=== PATIENT | female | born 1960 | race African-American/Black ===

== ENCOUNTER → 2016-08-09 | Outpatient (CLI) | payer BC | LOC: RAD 10:20 | PROVIDERS: ATTEND Nurse Practitioner Psychiatric/Mental Health | DX: R10.9 Unspecified abdominal pain (principal); K76.0 Fatty (change of) liver, not elsewhere classified | CPT/HCPCS: 76700; 93976 ==

== ENCOUNTER 2017-10-05 09:33 | Emergency (ER) | payer SELFPAY ==
[2017-10-05] MEDS ORDERED: GUAIFENESIN/CODEINE PHOS 100-10 MG/ 5 ML UDC PO ONE (10:50)
[2017-10-05] MEDS ORDERED: PREDNISONE 20 MG TABLET PO ONE (10:50)
[2017-10-05] MEDS ORDERED: IPRATROPIUM/ALBUTEROL 0.5-2.5 MG/3 ML AMPUL NEB ONE (10:50)
--- NOTE | 2017-10-05 10:55 | ER Document Report ---
ED General - General Chief Complaint: Cough Stated Complaint: COLD LIKE SYMPTOMS Time Seen by Provider: 10/05/17 10:45 Mode of Arrival: Ambulatory Information source: Patient, [facility] Records Notes: 57-year-old female with a history of hypertension, diabetes present with complaint of cough, nasal congestion, ear pain and sore throat that started 3 days prior to arrival. Patient describes the cough as persistent, productive and keeping her from being able to sleep. Her right ear started aching this morning. And her throat started hurting last night. She has tried taking over- the-counter allergy and sinus medication without relief. She denies any fever, chills, shortness of breath, back pain. She states she does have some chest pain with coughing only. She denies sick contacts, tobacco use. TRAVEL OUTSIDE OF THE [place] IN LAST 30 DAYS: No - HPI Onset: Last week Onset/Duration: Gradual, Worse Quality of pain: Achy Associated symptoms: Body/muscle aches, Chest pain - With coughing only, Productive cough, Earache, Sinus pain/drainage, Sore throat Exacerbated by: Denies Relieved by: Denies Similar symptoms previously: No Recently seen / treated by doctor: No - Related Data Allergies/Adverse Reactions: No Known Allergies Allergy (Verified 10/05/17 09:34) Past Medical History - Social History Smoking Status: Never Smoker Chew tobacco use (# tins/day): No Frequency of alcohol use: Rare Drug Abuse: None Family History: Reviewed & Not Pertinent Patient has suicidal ideation: No Patient has homicidal ideation: No - Past Medical History Cardiac Medical History: Reports: Hx Hypertension Denies: Hx Coronary Artery Disease, Hx Heart Attack Pulmonary Medical History: Denies: Hx Asthma, Hx Bronchitis, Hx COPD, Hx Pneumonia Neurological Medical History: Denies: Hx Cerebrovascular Accident, Hx Seizures Endocrine Medical History: Reports: Hx Diabetes Mellitus Type 2 Renal/ Medical History: Denies: Hx Peritoneal Dialysis Musculoskeltal Medical History: Denies Hx Arthritis Past Surgical History: Reports: Hx Hysterectomy - Immunizations Hx Diphtheria, Pertussis, Tetanus Vaccination: Yes Review of Systems - Review of Systems Notes: REVIEW OF SYSTEMS: CONSTITUTIONAL : Denies fever, or sweats. Denies recent illness. Denies weight loss, recent hospitalizations. He admits to chills EENT: Denies visula changes, eye pain. She admits to sinus pressure and nasal congestion. Denies sore throat, oral lesions, difficulty swallowing. CARDIOVASCULAR: Denies chest pain. Denies palpitations or racing or irregular heart beat. Denies lower extremity edema. RESPIRATORY: Admits to productive cough, chest congestion denies shortness of breath, GASTROINTESTINAL: Denies abdominal pain or distention. Denies nausea, vomiting , or diarrhea. Denies blood in vomitus, stools, or per rectum. Denies black, tarry stools. Denies constipation. GENITOURINARY: Denies difficulty urinating, painful urination, burning, frequency, blood in urine, or vaginal discharge. MUSCULOSKELETAL: Denies back or neck pain or stiffness. Denies joint pain or swelling. SKIN: Denies rash, lesions or sores. HEMATOLOGIC : Denies easy bruising or bleeding. LYMPHATIC: Denies swollen, enlarged glands. NEUROLOGICAL: Denies confusion or altered mental status. Denies passing out or loss of consciousness. Denies dizziness or lightheadedness. Denies headache. Denies weakness or paralysis or loss of use of either side. Denies problems with gait or speech. Denies sensory loss, numbness, or tingling. Denies seizures. PSYCHIATRIC: Denies anxiety or stress. Denies depression, suicidal ideation, or homicidal ideation. Physical Exam - Vital signs Vitals: Temp Pulse Resp BP Pulse Ox 99 F 65 18 146/65 H 98 10/05/17 10:01 10/05/17 10:01 10/05/17 10:01 10/05/17 10:01 10/05/17 10:01 Interpretation: Normal, Hypertensive - Notes Notes: PHYSICAL EXAMINATION: GENERAL: Well-appearing, well-nourished and in no acute distress. HEAD: Atraumatic, normocephalic. EYES: Pupils equal round and reactive to light, extraocular movements intact, conjunctiva are normal. ENT: Nares patent, oropharynx erythematous with exudates. Moist mucous membranes. NECK: Normal range of motion, supple without lymphadenopathy. LUNGS: Rhonchi in the left lower lung field, no respiratory distress, no accessory muscle use. HEART: Regular rate and rhythm without murmurs ABDOMEN: Soft, nontender, nondistended abdomen. No guarding, no rebound. No masses appreciated. Female : deferred Musculoskeletal: Normal range of motion, no pitting or edema. No cyanosis. NEUROLOGICAL: Cranial nerves grossly intact. Normal speech, normal gait. Normal sensory, motor exams PSYCH: Normal mood, normal affect. SKIN: Warm, Dry, normal turgor, no rashes or lesions noted. Course - Re-evaluation Re-evalutation: Chest X-Ray 10/05/17 10:50 IMPRESSION: NO ACUTE RADIOGRAPHIC FINDING IN THE CHEST. 10/05/17 11:54 On reevaluation patient states she is feeling better. Cough has improved. X- ray reviewed. 10/05/17 15:34 10/05/17 15:34 57-year-old female with a history of hypertension, diabetes present with complaint of cough, nasal congestion, ear pain and sore throat that started 3 days prior to arrival. Patient describes the cough as persistent, productive and keeping her from being able to sleep. Her right ear started aching this morning. And her throat started hurting last night. She has tried taking over- the-counter allergy and sinus medication without relief. She denies any fever, chills, shortness of breath, back pain. She states she does have some chest pain with coughing only. On arrival vitals were reviewed. Patient is afebrile , not hypoxic. She does not appear toxic or dehydrated. She is in no respiratory distress. Exam is significant for rhonchi in the left lower lung field, a persisting cough and mild erythema of the throat. Patient was provided breathing treatments, prednisone and Robitussin. On reevaluation she states that she is feeling better. She was discharged home in stable condition. Patient provided the opportunity to ask questions, and express concerns. Discharge instructions discussed. Patient is agreeable with discharge home. Return indications explained and discussed with the patient who displays understanding. Patient encouraged to return to the emergency department immediately with any concerns. 10/05/17 15:34 - Vital Signs Vital signs: Temp Pulse Resp BP Pulse Ox 98.9 F 67 15 138/84 H 100 10/05/17 12:07 10/05/17 12:07 10/05/17 12:07 10/05/17 12:07 10/05/17 12:07 - Diagnostic Test Radiology reviewed: Image reviewed, Reports reviewed Discharge - Discharge Clinical Impression: Cough, Wheezing URI (upper respiratory infection) Qualifiers: URI type: unspecified URI Qualified Code(s): J06.9 - Acute upper respiratory infection, unspecified Pharyngitis Qualifiers: Pharyngitis/tonsillitis etiology: unspecified etiology Qualified Code(s): J02.9 - Acute pharyngitis, unspecified Condition: Good Disposition: HOME, SELF-CARE Instructions: Upper Respiratory Illness ([facility]), Viral Syndrome ([facility]) Additional Instructions: Follow up with your physician tomorrow for further care or return to the ED IMMEDIATELY if symptoms worsen or new concerns occur. If you cannot afford to follow up with your primary care physician a list of low cost clinics have been provided at the end of your discharge papers as well. Prescriptions: Guaifenesin/Codeine Phos [Robitussin-AC Syrup 59 ml] 10 ml PO QHS #50 ml Doxycycline Hyclate 100 mg PO BID #14 capsule Prednisone 60 mg PO DAILY #15 tablet Forms: Elevated Blood Pressure, Return to Work
[2017-10-05 12:08] VITALS: BP 138/84
--- NOTE | 2017-10-05 12:11 | RADIOLOGY REPORT (SQ) ---
EXAM DESCRIPTION: CHEST 2 VIEWS COMPLETED DATE/TIME: 10/05/2017 11:29 am REASON FOR STUDY: cough fever COMPARISON: Two-view chest 06/17/2013 EXAM PARAMETERS: NUMBER OF VIEWS: two views TECHNIQUE: Digital Frontal and Lateral radiographic views of the chest acquired. RADIATION DOSE: NA LIMITATIONS: none FINDINGS: LUNGS AND PLEURA: No opacities, masses or pneumothorax. No pleural effusion. MEDIASTINUM AND HILAR STRUCTURES: No masses or contour abnormalities. HEART AND VASCULAR STRUCTURES: Heart normal size. No evidence for failure. BONES: No acute findings. HARDWARE: None in the chest. OTHER: No other significant finding. IMPRESSION: NO ACUTE RADIOGRAPHIC FINDING IN THE CHEST. TECHNICAL DOCUMENTATION: JOB ID: [id number] [employer]- All Rights Reserved Reading location - IP/workstation name: [email or web address]
== END 2017-10-05 12:08 | disposition home or self-care (01) ==
LOC: ER 09:33
DX: J06.9 Acute upper respiratory infection, unspecified (principal); R05 Cough; R06.2 Wheezing; R09.81 Nasal congestion; J02.9 Acute pharyngitis, unspecified; H92.01 Otalgia, right ear; E11.9 Type 2 diabetes mellitus without complications; I10 Essential (primary) hypertension; M79.1 Myalgia; R07.89 Other chest pain; J34.89 Other specified disorders of nose and nasal sinuses
CPT/HCPCS: 94640; 99283; 71046; J7512; J7620

== ENCOUNTER → 2017-10-31 | Outpatient (CLI) | payer SELFPAY ==
[2017-10-31 14:00] LABS: ANION GAP 9 (5-19); BLOOD UREA NITROGEN 17 mg/dL (7-20); CALCIUM 10.1 mg/dL (8.4-10.2); CARBON DIOXIDE 30 mmol/L (22-30); CHLORIDE 107 mmol/L (98-107); CHOLESTEROL 166.15 mg/dL (0-200); GLUCOSE 86 mg/dL (75-110); SODIUM 146.3 mmol/L (137-145); TRIGLYCERIDES 141 mg/dL (<150)
[2017-10-31 14:12] LABS: DIRECT LDL 57 mg/dL (<100)
== END ==
LOC: CCC 13:24
DX: I10 Essential (primary) hypertension (principal); E10.8 Type 1 diabetes mellitus with unspecified complications
CPT/HCPCS: 36415; 80048; 80061; 83036

== ENCOUNTER 2019-03-28 20:32 | Emergency (ER) | payer SELFPAY ==
--- NOTE | 2019-03-28 21:48 | ER Document Report ---
ED Medical Screen (RME) - General Chief Complaint: Foreign Body in Ear Stated Complaint: POSSIBLE FORIEGN OBJECT IN EAR Time Seen by Provider: 03/28/19 21:46 Primary Care Provider: EMERSON HARPER [Primary Care Provider] - Follow up as needed Mode of Arrival: Ambulatory Information source: Patient Notes: 59-year-old female presented to ED for complaint of something crawling in her ears last 10 days since she went to her friend's house. She states she felt something crawling on her when she went home and then she felt something crawling in her ear since then. Not visualize anything in her ear at this time. I have placed some alcohol in there and some more will reexamine her ears. I have greeted and performed a rapid initial assessment of this patient. A comprehensive ED assessment and evaluation of the patient, analysis of test results and completion of medical decision making process will be conducted by an additional ED providers. TRAVEL OUTSIDE OF THE [place] IN LAST 30 DAYS: No - Related Data Allergies/Adverse Reactions: No Known Allergies Allergy (Verified 10/05/17 09:34) Past Medical History - Past Medical History Cardiac Medical History: Reports: Hx Hypertension Denies: Hx Coronary Artery Disease, Hx Heart Attack Pulmonary Medical History: Denies: Hx Asthma, Hx Bronchitis, Hx COPD, Hx Pneumonia Neurological Medical History: Denies: Hx Cerebrovascular Accident, Hx Seizures Endocrine Medical History: Reports: Hx Diabetes Mellitus Type 2 Renal/ Medical History: Denies: Hx Peritoneal Dialysis Musculoskeltal Medical History: Denies Hx Arthritis Past Surgical History: Reports: Hx Hysterectomy - Immunizations Hx Diphtheria, Pertussis, Tetanus Vaccination: Yes Physical Exam - Vital signs Vitals: Temp Pulse Resp BP Pulse Ox 98.0 F 60 18 126/67 H 98 03/28/19 21:05 03/28/19 21:05 03/28/19 21:05 03/28/19 21:05 03/28/19 21:05 Course - Vital Signs Vital signs: Temp Pulse Resp BP Pulse Ox 98.0 F 60 18 126/67 H 98 03/28/19 21:05 03/28/19 21:05 03/28/19 21:05 03/28/19 21:05 03/28/19 21:05 Doctor's Discharge - Discharge Referrals: EMERSON HARPER [Primary Care Provider] - Follow up as needed
--- NOTE | 2019-03-29 | ER Document Report ---
HPI - HPI Patient complains to provider of: Ear complaint Time Seen by Provider: 03/28/19 21:46 Pain Level: 2 Context: Patient is a 59-year-old female that comes emergency department for chief complaint of her ear is bothering her. She states for the past week she has felt that something is crawling around in her ear on the right, she also has frequent congestion and occasionally muffled hearing. She states she ran out of her nasal spray as well. She states she tried putting peroxide in her ear but she still is intermittently feeling the crawling sensation. She denies pain, headache, nausea/vomiting, fever/chills, sore throat, or any other complaints at this time. - EENT EENT: REPORTS: Ear Pain - REPRODUCTIVE Reproductive: DENIES: : Past Medical History - General Information source: Patient - Social History Smoking Status: Never Smoker Frequency of alcohol use: None Drug Abuse: None Lives with: Family Family History: Reviewed & Not Pertinent Patient has suicidal ideation: No Patient has homicidal ideation: No - Past Medical History Cardiac Medical History: Reports: Hx Hypertension Denies: Hx Coronary Artery Disease, Hx Heart Attack Pulmonary Medical History: Denies: Hx Asthma, Hx Bronchitis, Hx COPD, Hx Pneumonia Neurological Medical History: Denies: Hx Cerebrovascular Accident, Hx Seizures Endocrine Medical History: Reports: Hx Diabetes Mellitus Type 2 Renal/ Medical History: Denies: Hx Peritoneal Dialysis Musculoskeletal Medical History: Denies Hx Arthritis Past Surgical History: Reports: Hx Hysterectomy - Immunizations Hx Diphtheria, Pertussis, Tetanus Vaccination: Yes Vertical Provider Document - CONSTITUTIONAL General Appearance: WD/WN, No Apparent Distress - INFECTION CONTROL TRAVEL OUTSIDE OF THE [place] IN LAST 30 DAYS: No - HEENT HEENT: Atraumatic, Normocephalic. negative: Normal ENT Exam - Large amount of cerumen bilaterally, this was cleared on the right side and there was possibly a mild serous effusion behind the tympanic membrane. No foreign body. Otherwise unremarkable. Nontender tragus and mastoid. Normal oral pharyngeal exam, normal ENT exam other than mild nasal congestion. - NECK Neck: Normal Inspection - RESPIRATORY Respiratory: Breath Sounds Normal, No Respiratory Distress - CARDIOVASCULAR Cardiovascular: Regular Rate, Regular Rhythm - GI/ABDOMEN Gastrointestinal: Abdomen Soft, Abdomen Non-Tender - BACK Back: Normal Inspection - MUSCULOSKELETAL/EXTREMETIES Musculoskeletal/Extremeties: MAEW, FROM, Non-Tender - NEURO Level of Consciousness: Awake, Alert, Appropriate Motor/Sensory: No Motor Deficit, No Sensory Deficit - DERM Integumentary: Warm, Dry, No Rash Course - Re-evaluation Re-evalutation: I used a curette to remove moderately large amount of earwax from the right ear without incident. No foreign body or insect, no concerning findings. Exam shows mild sinus congestion and probable mild right serous effusion. No infection. Unremarkable otherwise. Discussed treatment recommendations, follow-up, return precautions. Patient states understanding and agreement. - Vital Signs Vital signs: Temp Pulse Resp BP Pulse Ox 98.0 F 60 18 126/67 H 98 03/28/19 21:05 03/28/19 21:05 03/28/19 21:05 03/28/19 21:05 03/28/19 21:05 Discharge - Discharge Clinical Impression: Ear discomfort Qualifiers: Laterality: bilateral Qualified Code(s): H92.03 - Otalgia, bilateral Condition: Stable Disposition: HOME, SELF-CARE Additional Instructions: The exam does not show an insect or concerning finding in her ear other than a large amount of cerumen (wax). I do recommend flushing your ears with warm water using a syringe, you can also use drying agents such as hydroperoxide or isopropyl alcohol afterwards. Avoid using Q-tips. Take the nasal spray as prescribed. Follow-up with primary care for additional management. Return for any concerning symptoms including developing pain, bleeding or discharge, nausea/vomiting, severe headache, or any other concerning symptoms. Prescriptions: Fluticasone Propionate [Flonase Nasal [place] 50 Mcg/[place] 16 gm] 1 spray NASL Q12 #1 inhaler [facility]: [facility] [NO LOCAL MD] - Follow up as needed
[2019-03-29 00:31] VITALS: BP 132/75
== END 2019-03-29 00:10 | disposition home or self-care (01) ==
LOC: ER 20:32
DX: H92.03 Otalgia, bilateral (principal); H61.23 Impacted cerumen, bilateral; R09.81 Nasal congestion; I10 Essential (primary) hypertension; E11.9 Type 2 diabetes mellitus without complications
CPT/HCPCS: 99282

== ENCOUNTER → 2019-06-20 | Outpatient (CLI) | payer OTHER ==
[2019-06-20 15:39] LABS: ANION GAP 11 (5-19); BLOOD UREA NITROGEN 17 mg/dL (7-20); CALCIUM 9.5 mg/dL (8.4-10.2); CARBON DIOXIDE 31 mmol/L (22-30); CHLORIDE 96 mmol/L (98-107); GLUCOSE 110 mg/dL (75-110); POTASSIUM 3.7 mmol/L (3.6-5.0)
== END ==
LOC: CCC 14:40
DX: Z00.00 Encounter for general adult medical examination without abnormal findings (principal)
CPT/HCPCS: 36415; 80048

== ENCOUNTER → 2019-08-06 | Outpatient (CLI) | payer OTHER ==
--- NOTE | 2019-08-06 12:54 | RADIOLOGY REPORT (SQ) ---
EXAM DESCRIPTION: CT ABD/PELVIS WITH IV ORAL COMPLETED DATE/TIME: 08/06/2019 10:01 am REASON FOR STUDY: (R19.02)LEFT UPPER QUADRANT ABDOMINAL SWELLING, MASS AND LUMP R19.02 LEFT UPPER Q UADRANT ABDOMINAL SWELLING, MASS AND LUMP COMPARISON: None. TECHNIQUE: CT scan of the abdomen and pelvis performed using helical scanning technique with dynamic intravenous contrast injection. Oral contrast. Images reviewed with lung, soft tissue, and bone win dows. Reconstructed coronal and sagittal MPR images reviewed. Delayed images for evaluation of the ur inary system also acquired. All images stored on PACS. All CT scanners at this facility use dose modulation, iterative reconstruction, and/or weight based d osing when appropriate to reduce radiation dose to as low as reasonably achievable (ALARA). [facility]: Dose Right [facility]: CareDose [facility]: Dose Right [facility]: Teradose 4D [facility]: [email or web address] CONTRAST TYPE AND DOSE: contrast/concentration: Isovue 350.00 mg/ml; Total Contrast Delivered: 96.0 ml; Total Saline Delivered: 71.0 ml RENAL FUNCTION: Creatinine 1 RADIATION DOSE: CT Rad equipment meets quality standard of care and radiation dose reduction techniq ues were employed. CTDIvol: 8.7 - 8.7 mGy. DLP: 872 mGy-cm.. LIMITATIONS: None. FINDINGS: LOWER CHEST: No significant findings. No nodules or infiltrates. LIVER: Normal size. No masses. No dilated ducts. SPLEEN: Normal size. No focal lesions. PANCREAS: No masses. No significant calcifications. No adjacent inflammation or peripancreatic fluid collections. Pancreatic duct not dilated. GALLBLADDER: No identified stones by CT criteria. No inflammatory changes to suggest cholecystitis. ADRENAL GLANDS: No significant masses or asymmetry. RIGHT KIDNEY AND URETER: No solid masses. No significant calcifications. No hydronephrosis or hyd roureter. LEFT KIDNEY AND URETER: No solid masses. No significant calcifications. No hydronephrosis or hydr oureter. AORTA AND VESSELS: No aneurysm. No dissection. Renal arteries, SMA, celiac without stenosis. RETROPERITONEUM: No retroperitoneal adenopathy, hemorrhage or masses. BOWEL AND PERITONEAL CAVITY: No masses or inflammatory changes. No free fluid or peritoneal masses. APPENDIX: Surgically absent. PELVIS: No mass. No free fluid. Normal bladder. ABDOMINAL WALL: No masses. No hernias. BONES: No significant or acute findings. OTHER: No other significant finding. IMPRESSION: NO SIGNIFICANT OR ACUTE FINDING IN THE ABDOMEN OR PELVIS ON CT SCAN WITH IV CONTRAST. TECHNICAL DOCUMENTATION: JOB ID: [id number] Quality ID # [id number]: Final reports with documentation of one or more dose reduction techniques (e.g., Au tomated exposure control, adjustment of the mA and/or kV according to patient size, use of iterative reconstruction technique) 2010 [employer]- All Rights Reserved Reading location - IP/workstation name: [email or web address]
== END ==
LOC: RAD 09:12
PROVIDERS: ATTEND Family Medicine
DX: R19.02 Left upper quadrant abdominal swelling, mass and lump (principal)
CPT/HCPCS: 74177; 82565

== ENCOUNTER 2020-04-22 18:10 | Emergency (ER) | payer SELFPAY ==
--- NOTE | 2020-04-22 19:40 | ER Document Report ---
ED General - General Chief Complaint: Head Injury Stated Complaint: HEAD INJURY Time Seen by Provider: 04/22/20 19:33 Primary Care Provider: [facility],EMERSON [Primary Care Provider] - Follow up as needed JABIER HARMON MD [NO LOCAL MD] - Follow up in 1 week (for neurology follow up) TRAVEL OUTSIDE OF THE [place] IN LAST 30 DAYS: No - HPI Notes: 60-year-old female to the emergency department with complaints of headache after she sustained a head injury on this past Monday. She states she was helping her sister move. She was carrying a headboard when she accidentally struck herself in the back of the head with that board. She denies any loss of consciousness. She does admit to dizziness and this shooting pain coming up the back of her head. She has been trying [id number] Tylenol and Motrin with no benefit. Denies blurry vision or nausea vomiting. She denies any other focal neurological deficits. She is not on blood thinners. - Related Data Allergies/Adverse Reactions: No Known Allergies Allergy (Verified 10/05/17 09:34) Past Medical History - General Information source: Patient - Social History Smoking Status: Never Smoker Frequency of alcohol use: None Drug Abuse: None Family History: Reviewed & Not Pertinent - Past Medical History Cardiac Medical History: Reports: Hx Hypertension Denies: Hx Coronary Artery Disease, Hx Heart Attack Pulmonary Medical History: Denies: Hx Asthma, Hx Bronchitis, Hx COPD, Hx Pneumonia Neurological Medical History: Denies: Hx Cerebrovascular Accident, Hx Seizures Endocrine Medical History: Reports: Hx Diabetes Mellitus Type 2 Renal/ Medical History: Denies: Hx Peritoneal Dialysis Musculoskeletal Medical History: Denies Hx Arthritis Past Surgical History: Reports: Hx Hysterectomy - Immunizations Hx Diphtheria, Pertussis, Tetanus Vaccination: Yes Review of Systems - Review of Systems Constitutional: denies: Chills, Fever EENT: No symptoms reported Cardiovascular: Dizziness. denies: Chest pain, Palpitations, Heart racing, O rthopnea, Syncope, Lightheaded, Edema Respiratory: denies: Cough, Short of breath Gastrointestinal: denies: Abdominal pain, Diarrhea, Nausea, Vomiting Genitourinary: No symptoms reported Musculoskeletal: No symptoms reported Skin: No symptoms reported Neurological/Psychological: Headaches -: Yes All other systems reviewed and negative Physical Exam - Vital signs Vitals: Temp Pulse Resp BP Pulse Ox 98.2 F 56 L 16 155/72 H 99 04/22/20 18:32 04/22/20 18:32 04/22/20 18:32 04/22/20 18:32 04/22/20 18:32 Interpretation: Normal - Notes Notes: PHYSICAL EXAMINATION: GENERAL: Well-appearing, well-nourished and in no acute distress. HEAD: Atraumatic, normocephalic. There is no step-off or crepitus to the back of the scalp. Stump very tender to palpation. There is no laceration. EYES: Pupils equal round and reactive to light, extraocular movements intact, sclera anicteric, conjunctiva are normal. ENT: nares patent, oropharynx clear without exudates. Moist mucous membranes. TMs are clear bilaterally without hemotympanums. No craven sign. No raccoon eyes NECK: Normal range of motion, supple without lymphadenopathy, nontender to palpation to the midline cervical spine with no step-off or deformity. LUNGS: Breath sounds clear to auscultation bilaterally and equal. No wheezes rales or rhonchi. HEART: Regular rate and rhythm without murmurs ABDOMEN: Soft, nontender, normoactive bowel sounds. No guarding, no rebound. No masses appreciated. EXTREMITIES: Normal range of motion, no pitting or edema. No cyanosis. Nontender to palpation to the midline thoracic and lumbar spine with no step-off or deformity. Patient is able to ambulate without difficulty. NEUROLOGICAL: Cranial nerves II through XII are intact. No pronator drift. Normal [id number] bilaterally. No leg drift. Normal [id number]-[id number] bilaterally. No focal neurological deficits. Moves all extremities spontaneously and on command. Alert and oriented x4. GCS of 15. PSYCH: Normal mood, normal affect. SKIN: Warm, Dry, normal turgor, no rashes or lesions noted. Course - Re-evaluation Re-evalutation: Impression: Closed head injury. Likely a small mild concussion. Given her dizziness decided to scan her head to ensure no intracranial injury. Head CT is reassuring. Will send home with May. We will have her follow-up with primary care and also with neurology. Encouraged her to return if any worsening symptoms. She has no focal neurological deficits. Patient agrees with the plan. - Vital Signs Vital signs: Temp Pulse Resp BP Pulse Ox 98.2 F 54 L 16 143/77 H 97 04/22/20 18:32 04/22/20 21:20 04/22/20 21:20 04/22/20 21:20 04/22/20 21:20 Discharge - Discharge Clinical Impression: Closed head injury Qualifiers: Encounter type: initial encounter Qualified Code(s): S09.90XA - Unspecified injury of head, initial encounter Headache Qualifiers: Headache type: unspecified Headache chronicity pattern: acute headache Intractability: not intractable Qualified Code(s): R51.9 - Headache, unspecified Condition: Stable Disposition: HOME, SELF-CARE Instructions: Head Injury Precautions ([facility]) Additional Instructions: Follow up with the neurologist without fail. Follow up with [facility]. Return if worsening symptoms. Take medicines as prescribed. Prescriptions: Butalb/Acetaminophen/Caffeine [Fioricet (50-325-40 mg) Tablet] 1 tab PO Q8H PRN #12 tab PRN Reason: Referrals: [facility] [Primary Care Provider] - Follow up as needed JABIER HARMON MD [NO LOCAL MD] - Follow up in 1 week (for neurology follow up)
--- NOTE | 2020-04-22 20:55 | RADIOLOGY REPORT (SQ) ---
EXAM DESCRIPTION: CT HEAD WITHOUT CLINICAL HISTORY: 60 years Female head injury, dizzy TECHNIQUE: Noncontrast CT head. All CT scans at this facility use dose modulation, iterative reconstruction, and/or weight based dosing when appropriate to reduce radiation dose to as low as reasonably achievable. COMPARISON: None. FINDINGS: [place] matter, white matter, ventricles, and cisterns are within normal limits. No acute hemorrhage or mass effect. Visualized portions of paranasal sinuses and mastoids are clear. Visualized portions of the calvarium are within normal limits. IMPRESSION: 1. No acute intracranial findings. If there is clinical concern for acute stroke, MRI brain should be considered as a more sensitive evaluation.
[2020-04-22] MEDS ORDERED: BUTALB/ACETAMINOPHEN/CAFFEINE 1 TAB EACH PO ONE (21:14)
[2020-04-22 21:30] VITALS: BP 143/77
== END 2020-04-22 21:26 | disposition home or self-care (01) ==
LOC: ER 18:10
DX: S09.90XA Unspecified injury of head, initial encounter (principal); R51.9 Headache, unspecified; R42 Dizziness and giddiness; W22.8XXA Striking against or struck by other objects, initial encounter; Y93.E6 Activity, residential relocation; I10 Essential (primary) hypertension; E11.9 Type 2 diabetes mellitus without complications
CPT/HCPCS: 99284; 70450; J3490